=== PATIENT | female | born 1980 | race Caucasian/White ===

== ENCOUNTER 2021-08-09 13:11 | Emergency (ER) | payer OTHER, SELFPAY ==
[2021-08-09 13:12] VITALS: BP 143/77; PULSE 68; RESP 16; TEMP 36.6; O2SAT 99; BMI 31.3
--- NOTE | 2021-08-09 14:07 | RAD_ITS ---
STUDY: X-RAY - LEFT FOOT CLINICAL: Female, 40 years old. Pain TECHNIQUE: 3 view(s) of the foot. COMPARISON: None. FINDINGS: Normal talus, calcaneus, and tarsal bones. Normal visualized subtalar, talonavicular, calcaneocuboid, tarsal and tarsometatarsal articulations. Normal metatarsi. Normal metatarsophalangeal joint of the great toe. Normal tibial and fibular sesamoid bones. Normal interphalangeal joint of the great toe. Normal phalanges of the great toe. Normal second through fifth metatarsophalangeal joints. Normal interphalangeal joints and phalanges of the lesser toes. The soft tissue structures are unremarkable. RAD/Foot min 3 Views IMPRESSION: Normal x-ray examination of the foot. Electronically Signed: Seveirano Barajas MD at 14:32 EDT ,
--- NOTE | 2021-08-09 14:08 | EDS_ITS ---
HPI History of Present Illness Chief Complaint: Lower Extremity Injury Informant: patient Narrative Narrative: Patient complains of left foot pain. Patient hurt her foot originally back in April. She has been seeing a doctor down in [facility]. He did x-rays about 3 weeks ago. Evidently there is no marked abnormality. They are going to have her in a boot orthosis for 5 weeks and then recheck her. She has been in this for 3 weeks. Yesterday she took the boot off so she could shower. She stepped down and she has more pain in the distal portion of her left foot than she did before. She normally has pain around the first second and maybe third distal metatarsal. She now is including the third more in the fourth metatarsal. No deformity. No numbness. No pain up higher in the foot ankle or leg. No swelling. No erythema. No fevers or chills. She was told that if x-rays do not show anything and she is not getting better they will do an MRI. She does have an appointment in 2 days. She called because of this injury but they could not get her in today and she needs to know if something is wrong. We discussed that I cannot get an MRI of her foot in the emergency department. I explained that we can get an x-ray. I see no clinical indication of infection or DVT. X-rays do show fractures and can show signs of stress fractures. It is reasonable to check this. PFSH PFSH Medical History Non-smoker Home Medications hydrocodone-acetaminophen 5-325mg 5mg-325mg 1 tab PO Q6H PRN pain 3 days #10 tabs 08/09/21 [Rx Last Taken Unknown] loratadine 10 mg tablet (Claritin) 10 mg PO DAILY 08/09/21 [History Last Taken Unknown] metformin 500 mg tablet 500 mg PO DAILY 08/09/21 [History Last Taken Unknown] Allergy/AdvReac Type Severity Reaction Status Date / Time amoxicillin Allergy Hives Verified 08/09/21 13:14 Penicillins Allergy Hives Verified 08/09/21 13:14 Social History Smoking Status: Never smoker ROS ROS ED Constitutional Constitutional ED: Denies chills or fever(s) Respiratory/Chest Respiratory/Chest: Denies cough, dyspnea or dyspnea on exertion Musculoskeletal Musculoskeletal: Reports other Details: Left foot pain. See history of present illness. ; Denies back pain Integumentary Denies abscess, Abrasions or rash Neurologic Neurologic: Denies paresthesias or weakness Hematologic/Lymphatic Hematologic/Lymphatic: Denies easy bleeding, easy bruising or lymphadenopathy Allergic/Immunologic Allergic/Immunologic ED: Denies urticaria EXAM Physical Exam Const Vital Signs: 08/09/21 13:12 Temperature 97.9 F Temperature Source Temporal Pulse Rate 68 Respiratory Rate 16 Blood Pressure 143/77 H Blood Pressure Mean 99 Pulse Ox 99 Oxygen Delivery Method Room Air Positive well nourished and well developed General Appearance ED: well developed and NAD HEENT normocephalic and atraumatic Resp normal respiratory effort Extremity normal to inspection Extremity Narrative: There is no swelling in the foot. No deformity. No discoloration. There is no warmth. No erythema. No distended veins. No tenderness in the midfoot ankle tib-fib knee area. There is some mild tenderness over the distal metatarsals all the way across the foot. With mild lateral compression there is not a lot of pain. I doubt this is a Donohue's neuroma. No deformity of the toes. Neuro oriented x3 Sensorium / Orientation: alert Psych mental status grossly normal Skin no wounds Skin Narrative: No erythema warmth vesicles or other cutaneous abnormality. Lesions: no lesions MDM MDM MDM Narrative Medical decision making narrative: Three-view x-ray of the foot interpreted by me does show a fracture toward the proximal mid and of the fourth metatarsal. It does not look like it is acute but that is where a lot of her pain is now. My suspicion is that she likely had a stress fracture that was healing. Stepping on it last night caused it to move and increased her pain. She has a boot orthosis already. I will write her a few tablets of pain meds. Her online prescribing report is completely clear. She has an appointment with her orthopedic surgeon in 2 days. I will see if I get copies of these images to send with her. Radiography Diagnostic Testing: Clinical Impression(s) from Imaging Studies Foot X-Ray 08/09/21 14:07 IMPRESSION: Normal x-ray examination of the foot. Electronically Signed: Severiano Barajas MD at 14:32 EDT , Discharge Plan Triage Chief Complaint: Lower Extremity Injury ED Provider: Rnaulfo Eldridge Dx/Rx/DC Orders Clinical Impression: Fracture of fourth metatarsal bone of left foot Instructions: ED Fracture, Foot Prescriptions: New hydrocodone-acetaminophen 5-325 mg tablet 1 tab PO Q6H PRN (Reason: pain) 3 Days Qty: 10 0RF No Action metformin 500 mg Tablet 500 mg PO DAILY loratadine [Claritin] 10 mg Tablet 10 mg PO DAILY Primary Care Provider: Care Physician,No Primary Referrals: Care Physician,No Primary [Primary Care Provider] - Activity Restrictions/Additional Instructions: See Dr. Khanna on as scheduled. Disposition Disposition: Home, Self Care
[2021-08-09 15:02] VITALS: PULSE 82; RESP 15; O2SAT 98
== END 2021-08-09 15:03 | disposition home or self-care (01) ==
PROVIDERS: Emergency Provider Emergency Medicine; Visit Provider Emergency Medicine
DX: S92.342D Displaced fracture of fourth metatarsal bone, left foot, subsequent encounter for fracture with routine healing (principal); X58.XXXD Exposure to other specified factors, subsequent encounter
CPT/HCPCS: 73630; 99282